=== PATIENT | female | born 1975 | race Caucasian/White ===

== ENCOUNTER → 2020-04-26 | Outpatient (CLI) | payer OTHER ==
[~2020-04-26] MED LIST: CHOL500045 PO; INTE22PE SC; LEVO150T5 PO; SOLI10TA2 PO; TROS20TA2 PO
== END | disposition home or self-care (01) ==
LOC: RAD 13:10
PROVIDERS: ATTEND Neurological Surgery
DX: Z01.810 Encounter for preprocedural cardiovascular examination (principal); Z01.811 Encounter for preprocedural respiratory examination; Z01.812 Encounter for preprocedural laboratory examination; M54.16 Radiculopathy, lumbar region; R94.31 Abnormal electrocardiogram [ECG] [EKG]; R79.1 Abnormal coagulation profile; R82.90 Unspecified abnormal findings in urine; M51.26 Other intervertebral disc displacement, lumbar region
CPT/HCPCS: 71046; 93005